=== PATIENT | male | born 1995 | race African-American/Black ===

== ENCOUNTER 2020-11-14 22:51 | Emergency (ER) | payer SELFPAY ==
[2020-11-14 23:12] VITALS: BP 142/86; PULSE 87; RESP 17; TEMP 36.6; O2SAT 99
--- NOTE | 2020-11-15 00:41 | ED.GENADULT ---
HPI - General Adult General Chief complaint: Ear Stated complaint: Ear Ache Time Seen by Provider: 11/15/20 00:29 History of Present Illness HPI narrative: Patient 25-year-old gentleman who presents the emergency department chief complaint of sore throat and left ear pain. Patient reports for the last several days he has had pain in his throat reports it hurts whenever he swallows reports he is also had discomfort in his left ear that feels like a fullness. Patient states that he is concerned that he may have strep throat. Patient reports that it is worsened whenever he eats or drinks and improved with rest. Related Data Allergies Allergy/AdvReac Type Severity Reaction Status Date / Time No Known Allergies Allergy Unknown Verified 11/15/20 00:38 Review of Systems Review of Systems: Narrative: A 10 system review of systems was completed on the patient and is negative except for what is stated in the HPI. Nursing and ancillary documentation was reviewed. 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 HEAD: Normocephalic, atraumatic. EYES: PERRLA and EOMI. ENT: Nares clear, no rhinorrhea or epistaxis. Mucous membranes moist. There is erythema of the oropharynx. Left tympanic membrane shows no evidence of erythema NECK: Supple. CHEST: Clear to auscultation. No respiratory distress. HEART: Regular rate and rhythm. No murmur heard. Normal peripheral pulses. ABDOMEN: Soft, nontender, nondistended, normal active bowel sounds. EXTREMITIES: Normal range of motion. No edema. SKIN: Warm, dry, no rash. NEURO: No focal deficits. Alert and oriented x3. PSYCH: Normal mood and affect. Course Course Emergency Course: Patient had a rapid strep that was positive The patient will be given a dose of prednisone and a IM dose of Bicillin LA 1,200,000 units Vital Signs Vital signs: Vital Signs Temperature 36.6 C 11/14/20 23:12 Pulse Rate 87 11/14/20 23:12 Respiratory Rate 17 11/14/20 23:12 Blood Pressure 142/86 H 11/14/20 23:12 Pulse Oximetry 99 11/14/20 23:12 Temperature 36.6 C 11/14/20 23:12 Pulse Rate 87 11/14/20 23:12 Respiratory Rate 17 11/14/20 23:12 Blood Pressure 142/86 H 11/14/20 23:12 Pulse Oximetry 99 11/14/20 23:12 Medical Decision Making Vital Signs Vital Signs: Vital Signs Temperature 36.6 C 11/14/20 23:12 Pulse Rate 87 11/14/20 23:12 Respiratory Rate 17 11/14/20 23:12 Blood Pressure 142/86 H 11/14/20 23:12 Pulse Oximetry 99 11/14/20 23:12 Temperature 36.6 C 11/14/20 23:12 Pulse Rate 87 11/14/20 23:12 Respiratory Rate 17 11/14/20 23:12 Blood Pressure 142/86 H 11/14/20 23:12 Pulse Oximetry 99 11/14/20 23:12 Lab Data Labs: Strep Screen Positive Group A Strep *(Reference Range: Negative)* Discharge Plan Discharge Clinical Impression: Acute streptococcal pharyngitis Patient Disposition: Home, Self-Care Condition: Stable Instructions: Antibiotic Form, Pharyngitis (ED), Strep Throat (ED) Prescriptions: New methylprednisolone [Medrol (Rene)] 4 mg tablets,dose pack See Rx Instructions .ROUTE .COMPLEX Qty: 21 RF: 0 Follow-up/Referrals: PHYSICIAN,PURCHASING ASSISTANT [Primary Care Provider] - Irineo Self MD [Physician] - Stand Alone Forms: Work/School Release IP Time of Disposition: 00:44
[2020-11-15] MEDS: PENICILLIN G BENZATHINE 1,200,000 UNITS/2 ML SYRINGE 1200000 UNITS IM (01:13)
[2020-11-15] MEDS: predniSONE 20 MG TABLET 60 MG PO (01:13)
== END 2020-11-15 01:34 | disposition home or self-care (01) ==
PROVIDERS: Emergency Provider Emergency Medicine
DX: J02.0 Streptococcal pharyngitis (principal)
CPT/HCPCS: 87880; 96372; 99283; J0561; J7512

== ENCOUNTER 2021-02-08 08:15 | Emergency (ER) | payer BC, SELFPAY ==
[2021-02-08 08:26] VITALS: BP 126/76; PULSE 72; RESP 16; TEMP 36.3; O2SAT 98
--- NOTE | 2021-02-08 08:51 | ED.SKABFB ---
HPI - Skin/Abscess/Foreign Bdy General Chief complaint: Skin/Abscess/Foreign Body Stated complaint: Lump under arm Time Seen by Provider: 02/08/21 08:38 Source: patient and RN notes reviewed Mode of arrival: ambulatory Limitations: no limitations History of Present Illness HPI narrative: Patient presents today complaining of an abscess to his right axilla x2 weeks that has been worsening since onset. Denies drainage. Currently rates pain 7/10 and has been taking Tylenol with mild relief. Does have history of abscesses in the past. No recent antibiotic use. MD complaint: abscess/boil Related Data Allergies Allergy/AdvReac Type Severity Reaction Status Date / Time No Known Allergies Allergy Verified 02/08/21 08:38 Review of Systems Review of Systems: CONSTITUTIONAL: Denies body aches, fever, chills, or sweats. EYES: Denies visual changes, redness, or discharge. ENT: Denies rhinorrhea, congestion, sore throat, or otalgia. CARDIOVASCULAR: Denies chest pain, palpitations, or edema. RESPIRATORY: Denies cough or dyspnea. GASTROINTESTINAL: Denies abdominal pain, nausea, vomiting, or diarrhea. GENITOURINARY: Denies dysuria or hematuria. SKIN: Denies rash, itching. + Abscess to right axilla. MUSCULOSKELETAL: Denies back pain, joint pain, or myalgia. NEUROLOGIC: Denies headache, numbness, tingling, or weakness. PSYCH: Denies depression or anxiety. PMFSH Social History Social History Smoking status: Never smoker Second hand tobacco smoke exposure: No Alcohol intake: current Comments At time of signature, I have reviewed and agree with nursing past medical, surgical, social and family history unless otherwise noted. Please see nursing chart for further information. There is no relevant family history pertinent to the presenting complaint Exam Narrative: GENERAL: Well-appearing, well-nourished, and in no acute distress. HEAD: Normocephalic, atraumatic. EYES: EOMI. No redness or drainage. Conjunctivae normal. ENT: Mucous membranes pink and moist. NECK: Normal AROM. CHEST: No respiratory distress. EXTREMITIES: Normal range of motion. No edema. SKIN: Warm, dry, no rash. Capillary refill normal. Normal skin turgor. 2 x 1 cm fluctuant abscess to the right axilla. Tender to palpation. NEURO: No focal deficits. Alert and oriented x3. Gait steady. PSYCH: Normal affect. No signs of depression or anxiety. Course Vital Signs Vital signs: Vital Signs Temperature 97.3 F L 02/08/21 08:26 Pulse Rate 72 02/08/21 08:26 Respiratory Rate 16 02/08/21 08:26 Blood Pressure 126/76 02/08/21 08:26 Pulse Oximetry 98 02/08/21 08:26 Temperature 97.3 F L 02/08/21 08:26 Pulse Rate 72 02/08/21 08:26 Respiratory Rate 16 02/08/21 08:26 Blood Pressure 126/76 02/08/21 08:26 Pulse Oximetry 98 02/08/21 08:26 Reviewed. Pt has been instructed to follow up with his PCP regarding his elevated blood pressure today. Procedures Abscess I/D other: Date of Incision: 02/08/21 Time of Incision: 08:53 Side (if applicable): right (Axilla) Sedation/analgesia: none Local Anesthetic: lidocaine 1% Technique: incised with #11 blade Irrigation: No Packing used?: none I&D Results: Pus and Blood Abcess I&D Additional Comments: Dressed with large Band-Aid MDM - Skin/Abscess/Foreign Bdy Differential Diagnosis Differential diagnosis: Likely abscess of skin or subcutaneous tissue and cellulitis Critical Care Time Critical Care Time Critical Care Time: No Discharge Plan Discharge Clinical Impression: Abscess of axilla, right Patient Disposition: Home, Self-Care Condition: Stable Instructions: Antibiotic Form, Abscess (ED), Abscess Incision and Drainage (DC) Additional Instructions: Your abscess has been lanced and drained. Please keep the dressing on for at least the next 24 hours t
== END 2021-02-08 09:39 | disposition home or self-care (01) ==
PROVIDERS: Emergency Provider Nurse Practitioner
DX: L02.411 Cutaneous abscess of right axilla (principal)
CPT/HCPCS: 10060; 99203; G0463

== ENCOUNTER 2021-03-02 19:19 | Emergency (ER) | payer BC, SELFPAY ==
[2021-03-02 19:27] VITALS: BP 134/77; PULSE 72; RESP 18; TEMP 36.3; O2SAT 100
[2021-03-02 20:20] VITALS: BP 125/84; PULSE 72; RESP 16; TEMP 36.4; O2SAT 96
--- NOTE | 2021-03-02 20:36 | PC.NURSE ---
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 Reports taking Nyquil around noon with no relief.
--- NOTE | 2021-03-02 21:22 | ED.GENADULT ---
HPI - General Adult General Chief complaint: Headache Stated complaint: headache, cold Time Seen by Provider: 03/02/21 21:01 History of Present Illness HPI narrative: Patient is a 25-year-old male who presents ER with sinus congestion and headache. Ongoing for 1 day. Headache is frontal over his sinuses. No cough or difficulty breathing. He has had subjective chills. He is not vaccinated against Covid 19. He does not have any known exposures. No loss of taste or smell. He is concerned he requires a test. Patient does report he will get symptoms like this annually. He has tried no other medications other than NyQuil which has not helped. Related Data Allergies Allergy/AdvReac Type Severity Reaction Status Date / Time No Known Allergies Allergy Verified 03/02/21 20:35 Review of Systems Review of Systems: All systems reviewed & are unremarkable except as noted in HPI and below Constitutional: Constitutional: Reports chills, Denies fever(s) and Denies weakness ENT: Reports nasal congestion and Denies sore throat Respiratory: Respiratory: Denies cough, Denies dyspnea and Denies wheezing PMFSH Past Medical History Medical History (Updated 03/02/21 @ 23:13 by Trevon Rock MD) Healthy adult male Surgical History Surgical History (Updated 03/02/21 @ 21:25 by Trevon Rock MD) History of appendectomy Social History Social History Smoking status: Never smoker Second hand tobacco smoke exposure: No Alcohol intake: current Exam Narrative: GENERAL: Well-appearing, well-nourished, and in no acute distress. HEAD: Normocephalic, atraumatic. ENT: Frontal or maxillary sinus tenderness.. NECK: Supple. CHEST: Clear to auscultation. No respiratory distress. HEART: Regular rate and rhythm. Normal peripheral pulses. NEURO: Alert and oriented x3. PSYCH: Normal mood and affect. Course Course Emergency Course: Covid negative negative. Discharge with prescriptions for sinus congestion. Vital Signs Vital signs: Vital Signs Temperature 97.4 F L 03/02/21 19:27 Pulse Rate 72 03/02/21 19:27 Respiratory Rate 18 03/02/21 19:27 Blood Pressure 134/77 03/02/21 19:27 Pulse Oximetry 100 03/02/21 19:27 Temperature 97.6 F 03/02/21 20:20 Pulse Rate 72 03/02/21 20:20 Respiratory Rate 16 03/02/21 20:20 Blood Pressure 125/84 03/02/21 20:20 Pulse Oximetry 96 03/02/21 20:20 Medical Decision Making Vital Signs Vital Signs: Vital Signs Temperature 97.4 F L 03/02/21 19:27 Pulse Rate 72 03/02/21 19:27 Respiratory Rate 18 03/02/21 19:27 Blood Pressure 134/77 03/02/21 19:27 Pulse Oximetry 100 03/02/21 19:27 Temperature 97.6 F 03/02/21 20:20 Pulse Rate 72 03/02/21 20:20 Respiratory Rate 16 03/02/21 20:20 Blood Pressure 125/84 03/02/21 20:20 Pulse Oximetry 96 03/02/21 20:20 Lab Data Labs: Lab Results 03/02/21 Range/Units 22:30 SARS-CoV-2 IgG/IgM Ag?Rapid Negative (Negative) Discharge Plan Discharge Clinical Impression: URI (upper respiratory infection) Patient Disposition: Home, Self-Care Condition: Stable Instructions: Upper Respiratory Infection (ED), General Headache (ED) Additional Instructions: Return the ER if you cannot breathe, you cannot keep down food or water, you have chest pain or shortness of breath, you have additional concerns. Prescriptions: New fluticasone propionate [Flonase Allergy Relief] 50 mcg/actuation spray,suspension 1 spray intranasal BID Qty: 16 RF: 0 pseudoephedrine-guaifenesin [Mucinex D Maximum Strength] 120-1,200 mg tablet extended release 12 hr 1 tablet PO Q12H PRN (Reason: cold symptoms) Qty: 14 RF: 0 Follow-up/Referrals: PHYSICIAN,MELT SUPERINTENDANT [Primary Care Provider] - Reilly Davey MD [Physician] - 1 Week
[2021-03-02] MEDS: KETOROLAC (*BKC) 60 MG/2 ML VIAL IM (22:23)
--- NOTE | 2021-03-02 22:32 | PC.NURSE ---
Pt COVID swabbed. Lab called to alert swab being sent.
[2021-03-02 22:51] LABS: EDCOVIDSCREEN Negative (Negative)
[2021-03-02 23:24] VITALS: BP 117/81; PULSE 72; RESP 15; TEMP 36.3; O2SAT 100
== END 2021-03-02 23:30 | disposition home or self-care (01) ==
PROVIDERS: Emergency Provider Emergency Medicine
DX: J06.9 Acute upper respiratory infection, unspecified (principal); Z20.822 Contact with and (suspected) exposure to COVID-19
CPT/HCPCS: 36415; 87426; 96372; 99283; C9803; J1885

== ENCOUNTER 2021-07-16 02:40 | Emergency (ER) | payer BC, SELFPAY ==
--- NOTE | ~2021-07-16 | XR_ITS ---
EXAMINATION: XR chest 1V portable DATE: 07/16/2021 02:57 INDICATION: Cough, shortness of breath and body aches TECHNIQUE: frontal view of the chest was obtained. COMPARISON: None FINDINGS: The lungs are clear with no focal airspace opacities, pulmonary edema, pleural effusion or pneumothor ax. The cardiomediastinal silhouette is normal. Visualized bones and soft tissues are unremarkable. IMPRESSION: 1. Normal chest radiograph. Reviewed, dictated and finalized at location A. DER IMPRESSION: 1. Normal chest radiograph.
[2021-07-16 02:44] VITALS: BP 152/82; PULSE 92; RESP 18; TEMP 36.4; O2SAT 96
--- NOTE | 2021-07-16 03:49 | ED.GENADULT ---
HPI - General Adult General Chief complaint: Upper Respiratory Infection Stated complaint: sore throat, chest pain, bodyache Time Seen by Provider: 07/16/21 03:05 History of Present Illness HPI narrative: Patient with 5-year-old gentleman who presents to emergency department chief complaint of body aches sore throat and generalized malaise. 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 The patient states that this has been going on for the last 24 to 48hours the patient reports that he had a little bit of a cough and a little bit of discomfort in his chest. Related Data Allergies Allergy/AdvReac Type Severity Reaction Status Date / Time No Known Allergies Allergy Unknown Verified 11/15/20 00:38 Review of Systems Review of Systems: A 10 system review of systems was completed on the patient and is negative except for what is stated in the HPI. Nursing and ancillary documentation was reviewed. [facility] Social History Social History Gender identity (if verbalized by the patient): Male Exam Narrative: GENERAL: Well-appearing, well-nourished, and in no acute distress. HEAD: Normocephalic, atraumatic. EYES: PERRLA and EOMI. ENT: Nares clear, no rhinorrhea or epistaxis. Mucous membranes moist. NECK: Supple. CHEST: Clear to auscultation. No respiratory distress. HEART: Regular rate and rhythm. No murmur heard. Normal peripheral pulses. ABDOMEN: Soft, nontender, nondistended, normal active bowel sounds. EXTREMITIES: Normal range of motion. No edema. SKIN: Warm, dry, no rash. NEURO: No focal deficits. Alert and oriented x3. PSYCH: Normal mood and affect. Course Course Emergency Course: Chest x-ray shows no evidence of focal infiltrate Vital Signs Vital signs: Vital Signs Temperature 36.4 C L 07/16/21 02:44 Pulse Rate 92 07/16/21 02:44 Respiratory Rate 18 07/16/21 02:44 Blood Pressure 152/82 H 07/16/21 02:44 Pulse Oximetry 96 07/16/21 02:44 Temperature 36.4 C L 07/16/21 02:44 Pulse Rate 92 07/16/21 02:44 Respiratory Rate 18 07/16/21 02:44 Blood Pressure 152/82 H 07/16/21 02:44 Pulse Oximetry 96 07/16/21 02:44 Medical Decision Making Vital Signs Vital Signs: Vital Signs Temperature 36.4 C L 07/16/21 02:44 Pulse Rate 92 07/16/21 02:44 Respiratory Rate 18 07/16/21 02:44 Blood Pressure 152/82 H 07/16/21 02:44 Pulse Oximetry 96 07/16/21 02:44 Temperature 36.4 C L 07/16/21 02:44 Pulse Rate 92 07/16/21 02:44 Respiratory Rate 18 07/16/21 02:44 Blood Pressure 152/82 H 07/16/21 02:44 Pulse Oximetry 96 07/16/21 02:44 Lab Data Labs: Lab Results 07/16/21 Range/Units 03:18 SARS-CoV-2 RNA (RT-PCR) Pending Influenza A Screen Negative Reference Range: Negative Influenza B Screen Negative Reference Range: Negative Strep Screen Presumptive Negative *(Reference Range: Negative)* Discharge Plan Discharge Clinical Impression: Viral illness Upper respiratory infection Qualifiers: URI type: unspecified viral URI Qualified Code(s): J06.9 - Acute upper respiratory infection, unspecified Patient Disposition: Home, Self-Care Condition: Stable Instructions: Antibiotic Form, Upper Respiratory Infection (ED), Viral Syndrome (ED) Prescriptions: New benzonatate 200 mg capsule 200 mg PO TID PRN (Reason: cough) Qty: 21 RF: 0 No Action methylprednisolone [Medrol (Rene)] 4 mg tablets,dose pack See Rx Instructions .ROUTE .COMPLEX Qty: 21 RF: 0 Follow-up/Referrals: Donal Cheng DO [Physician] - PHYSICIAN,CHART WRITER [Primary Care Provider] - Time of Disposition: 03:52
[2021-07-16 04:08] LABS: SARS-CoV-2 RNA PCR Positive
== END 2021-07-16 04:10 | disposition home or self-care (01) ==
PROVIDERS: Emergency Provider Emergency Medicine
DX: U07.1 COVID-19 (principal); J06.9 Acute upper respiratory infection, unspecified
CPT/HCPCS: 71045; 87081; 87804; 87880; 99283; C9803; U0003; U0005